=== PATIENT | male | born 1970 | race Two or more races ===

== ENCOUNTER 2016-12-06 20:50 | Emergency (ER) | payer SELFPAY ==
[~2016-12-06] VITALS: Ht 182.9 cm; Wt 83.5 kg
[2016-12-06] MEDS ORDERED: cloNIDine HCL 0.1 MG TABLET PO ONE (22:30)
--- NOTE | 2016-12-06 22:30 | PHYS DOC ---
Past Medical History Past Medical History: No Pertinent History Past Surgical History: No Surgical History Additional Information: 0.5 PPD Alcohol Use: Heavy Drug Use: None Adult General Chief Complaint Chief Complaint: DIZZY/LIGHT HEADED HPI HPI Patient is a 46 year old male who presents with dizziness. The patient reports onset of symptoms shortly prior to arrival, felt lightheaded & sweaty. He denies headache, vision changes, speech changes, chest pain, shortness of breath, extremity numbness/weakness. Denies history of HTN. No known PMHx. He is a daily smoker, drinks heavily on the weekends but not every day, no history of alcohol withdrawal. Review of Systems Review of Systems Constitutional: Denies fever or chills Eyes: Denies change in visual acuity HENT: Denies nasal congestion or sore throat Respiratory: Denies cough or shortness of breath Cardiovascular: Denies chest pain or edema GI: Denies abdominal pain, nausea, vomiting, or diarrhea : Denies dysuria Musculoskeletal: Denies back pain or joint pain Integument: Denies rash or skin lesions Neurologic: Reports dizziness. Denies headache, focal weakness or sensory changes Current Medications Current Medications Current Medications Medications (Trade) Dose Ordered Sig/Orestes Start Time Stop Time Status Last Admin Dose Admin Clonidine HCl (Catapres) 0.1 mg 1X ONCE 12/06/16 22:30 12/06/16 22:32 DC 12/06/16 22:40 0.1 MG Diazepam (Valium) 5 mg 1X ONCE 12/06/16 22:30 12/06/16 22:32 DC 12/06/16 22:42 5 MG Allergies Allergies Allergies Coded Allergies Type Severity Reaction Last Updated Verified No Known Drug Allergies 12/06/16 No Physical Exam Physical Exam Constitutional: Well developed, well nourished, no acute distress, non-toxic appearance. tremulous at times. HENT: Normocephalic, atraumatic, bilateral external ears normal, oropharynx moist, nose normal. Eyes: PERRLA, EOMI, conjunctiva normal, no discharge. Neck: supple, no stridor. Cardiovascular: RRR, no murmurs, no edema. Lungs & Thorax: LCTAB, no wheezing, no respiratory distress. Abdomen: soft, nontender, nondistended. Skin: Warm, dry, no erythema, no rash. Back: No tenderness. Extremities: No tenderness, no edema. no calf tenderness or swelling. Neurologic: Alert and oriented X 3, CN2-12 grossly intact, symmetric strength/ sensation to UE & LE, no focal deficits noted. Psychologic: Affect normal, judgement normal, mood normal. Current Patient Data Vital Signs Vital Signs Date Time Temp Pulse Resp B/P (MAP) Pulse Ox O2 Delivery O2 Flow Rate FiO2 12/07/16 00:03 88 19 167/114 (131) 99 Room Air 12/06/16 22:05 98.4 98.4 Lab Values Laboratory Tests Test 12/06/16 22:27 12/06/16 23:23 White Blood Count 10.5 x10^3/uL (4.0-11.0) Red Blood Count 5.15 x10^6/uL (4.30-5.70) Hemoglobin 16.3 g/dL (13.0-17.5) Hematocrit 46.1 % (39.0-53.0) Mean Corpuscular Volume 90 fL (79-100) Mean Corpuscular Hemoglobin 32 pg (25-35) Mean Corpuscular Hemoglobin Concent 35 g/dL (31-37) Red Cell Distribution Width 13.3 % (11.5-14.5) Platelet Count 271 x10^3/uL (140-400) Neutrophils (%) (Auto) 71 % (31-73) Lymphocytes (%) (Auto) 17 % (24-48) L Monocytes (%) (Auto) 10 % (0-9) H Eosinophils (%) (Auto) 1 % (0-3) Basophils (%) (Auto) 0 % (0-3) Neutrophils # (Auto) 7.5 x10^3uL (1.8-7.7) Lymphocytes # (Auto) 1.8 x10^3/uL (1.0-4.8) Monocytes # (Auto) 1.0 x10^3/uL (0.0-1.1) Eosinophils # (Auto) 0.1 x10^3/uL (0.0-0.7) Basophils # (Auto) 0.0 x10^3/uL (0.0-0.2) Sodium Level 141 mmol/L (136-145) Potassium Level 3.5 mmol/L (3.5-5.1) Chloride Level 106 mmol/L (98-107) Carbon Dioxide Level 23 mmol/L (21-32) Anion Gap 12 (6-14) Blood Urea Nitrogen 12 mg/dL (8-26) Creatinine 1.2 mg/dL (0.7-1.3) Estimated GFR (Cockcroft-Gault) 65.8 BUN/Creatinine Ratio 10 (6-20) Glucose Level 128 mg/dL (70-99) H Calcium Level 8.6 mg/dL (8.5-10.1) Total Bilirubin 0.3 mg/dL (0.2-1.0) Aspartate Amino Transferase (AST) 15 U/L (15-37) Alanine Aminotransferase (ALT) 39 U/L (16-63) Alkaline Phosphatase 76 U/L (46-116) Troponin I Quantitative < 0.017 ng/mL (0.000-0.055) YN-Qvd-[id number]-Type Natriuretic Peptide 66 pg/mL (0-124) Total Protein 7.6 g/dL (6.4-8.2) Albumin 3.8 g/dL (3.4-5.0) Albumin/Globulin Ratio 1.0 (1.0-1.7) Ethyl Alcohol Level < 10 mg/dL (0-10) Urine Opiates Screen Neg (NEG) Urine Methadone Screen Neg (NEG) Urine Barbiturates Neg (NEG) Urine Phencyclidine Screen Neg (NEG) Urine Amphetamine/Methamphetamine Neg (NEG) Urine Benzodiazepines Screen Neg (NEG) Urine Cocaine Screen Pos (NEG) Urine Cannabinoids Screen Neg (NEG) Urine Ethyl Alcohol Neg (NEG) Laboratory Tests 12/06/16 22:27 Laboratory Tests 12/06/16 22:27 EKG EKG interpreted by me: NSR rate 95, no acute ST/T wave changes, normal intervals, no ectopy.[] Radiology/Procedures Radiology/Procedures patient refused head CT[] Course & Med Decision Making Course & Med Decision Making Pertinent Labs and Imaging studies reviewed. (See chart for details) The patient presents with hypertension and dizziness. Tachycardic and hypertensive upon arrival. I suspect possible alcohol withdrawal as he appears somewhat tremulous. Blood pressure markedly elevated. Administered clonidine and Valium. Obtained labs, ordered CT of the head. Patient refused head CT. Requesting to nurse that he wanted to leave the hospital. I had already suggested that admission would be indicated. I had lengthy discussion with the patient via Hungarian language line liability claims manager about recommendation for admission to the hospital for management of blood pressure and likely alcohol withdrawal. He has important commitment tomorrow and refuses to stay in the hospital. Discussed risks of leaving which include worsening condition, undiagnosed condition, possibly . He voices understanding, is not suicidal , is alert and oriented 3, and chest to sign out AGAINST MEDICAL ADVICE. I provided prescription for clonidine. Recommended follow-up with primary care physician in 2-3 days, suggested Dr. Larson. Return to the emergency department for severe headache, focal neurologic deficit, severe chest pain or shortness of breath, withdrawal seizure, any otherwise worsening condition. Discharged AGAINST MEDICAL ADVICE. [] Dragon Disclaimer Dragon Disclaimer This electronic medical record was generated, in whole or in part, using a voice recognition dictation system. Departure Departure Impression: Primary Impression: Hypertension Additional Impressions: Alcohol withdrawal Cocaine abuse Tachycardia Disposition: AGAINST MEDICAL ADVICE Condition: STABLE Referrals: NO PCP (PCP) ANGIE LARSON MD Patient Instructions: Alcohol Withdrawal, [id number], Hypertension, Easy-to- Read Additional Instructions: You seen in the emergency department today for high blood pressure. This may be related to withdrawal from alcohol. We recommended admission to the hospital for further evaluation and treatment. You preferred to go home. Risks of leaving include worsening condition, undiagnosed condition, possibly . Take the prescribed medication. Consider seeking treatment for alcohol detox. Follow-up with Dr. Larson in the primary care clinic within 2-3 days. Return to the emergency department for seizure, severe headache, severe chest pain or shortness of breath, any otherwise worsening condition. Scripts Clonidine Hcl (CLONIDINE HCL) 0.1 Mg Tablet 1 TAB PO QHS for 7 Days, #7 TAB 1 Refill Prov: RIVERA JOHNSON MD 12/07/16 Problem Qualifiers RIVERA JOHNSON MD Dec 06, 2016 22:30
[2016-12-06 22:42] LABS: BASO % 0 % (0-3); EOS % 1 % (0-3); HEMATOCRIT 46.1 % (39.0-53.0); HEMOGLOBIN 16.3 g/dL (13.0-17.5); LYMPH # 1.8 x10^3/uL (1.0-4.8); LYMPH % 17 % (24-48); MEAN CORPUSCULAR HEMOGLOBIN 32 pg (25-35); MEAN CORPUSCULAR HGB CONC 35 g/dL (31-37); MEAN CORPUSCULAR VOLUME 90 fL (79-100); MONO % 10 % (0-9); NEUT % 71 % (31-73); PLATELET COUNT 271 x10^3/uL (140-400); RED BLOOD COUNT 5.15 x10^6/uL (4.30-5.70); RED CELL DISTRIBUTION WIDTH 13.3 % (11.5-14.5); WHITE BLOOD COUNT 10.5 x10^3/uL (4.0-11.0)
[2016-12-06 22:56] LABS: CALCIUM 8.6 mg/dL (8.5-10.1); CREATININE 1.2 mg/dL (0.7-1.3); GFR 65.8; POTASSIUM 3.5 mmol/L (3.5-5.1)
[2016-12-06 23:02] LABS: ALBUMIN 3.8 g/dL (3.4-5.0); TOTAL BILIRUBIN 0.3 mg/dL (0.2-1.0); TOTAL PROTEIN 7.6 g/dL (6.4-8.2)
[2016-12-06 23:35] LABS: BARBITURATES NEG (NEG); BENZODIAZEPINES NEG (NEG); CANNABINOIDS NEG (NEG); COCAINE POS (NEG); METHADONE NEG (NEG); OPIATES NEG (NEG); PHENCYCLIDINE NEG (NEG)
[2016-12-07 00:03] VITALS: BP 167/114
[2016-12-07] MEDS ORDERED: CLON0.1T PO (00:08)
--- NOTE | 2016-12-07 07:40 | RAD ---
Portable chest, 12/06/2016: History: Hypertension The heart size and pulmonary vascularity are normal. No pulmonary infiltrates are seen. There is no evidence of pleural fluid. IMPRESSION: No acute cardiopulmonary abnormality is detected.
--- NOTE | 2016-12-07 08:00 | EKG ---
[facility] [address] [place] [address] Test Date: 2016-12-06 Test Time: 22:53:07 Pat Name: ADALI KAUR Department: Room: Gender: M An/Sqq [id number] [employer] System Journeyman: : 1970 Requested By: RIVERA JOHNSON Order Number: [id number] Reading MD: Fátima Arriaza Measurements Intervals Terrell Rate: 95 P: 26 PA: 102 QRS: 13 QRSD: 82 T: 7 QT: 326 QTc: 413 Interpretive Statements SINUS RHYTHM LEFT ATRIAL ABNORMALITY RI6.01 Unconfirmed report No previous ECG available for comparison Electronically Signed On 12-09-2016 22:31:27 CDT by Fátima Arriaza
== END 2016-12-07 00:20 | disposition left against medical advice (07) ==
LOC: ER 20:50
DX: I10 Essential (primary) hypertension (principal); F10.239 Alcohol dependence with withdrawal, unspecified; F14.10 Cocaine abuse, uncomplicated; R00.0 Tachycardia, unspecified; F17.200 Nicotine dependence, unspecified, uncomplicated
CPT/HCPCS: 36415; 71010; 80053; 80305; 80320; 83880; 84484; 85027; 93005; 96374; 99285; J3360; G0480; G0481